=== PATIENT | female | born 1935 | race Caucasian/White ===

== ENCOUNTER 2016-04-27 11:07 | Day surgery (SDC) | payer MEDICARE, BC ==
[2016-11-12] MEDS ORDERED: NORVASC10 MG PO (18:38)
[2016-11-12] MEDS ORDERED: COZAAR100 MG PO (18:38)
[2016-11-12] MEDS ORDERED: PRAVACHOL40 MG PO (18:38)
[2016-11-12] MEDS ORDERED: HALFPRIN81 MG PO (18:39)
[2016-11-12] MEDS ORDERED: CERTAVITE SR-AN1 TAB PO (18:40)
[2016-11-12] MEDS ORDERED: VITAMIN C250 MG PO (18:40)
[2016-11-12] MEDS ORDERED: VITAMIN D31000 UNI1 PO (18:40)
[2016-11-12] MEDS ORDERED: AMBIEN10 MG PO (18:41)
== END 2016-04-27 14:50 | disposition short-term general hospital (02) ==
LOC: SURGOP 11:07
PROC: 08RK3JZ Replacement of Left Lens with Synthetic Substitute, Percutaneous Approach (ICD-10-PCS; principal; 2016-04-27)
DX: H26.9 Unspecified cataract (principal); I10 Essential (primary) hypertension; Z90.49 Acquired absence of other specified parts of digestive tract; Z79.82 Long term (current) use of aspirin; Z79.891 Long term (current) use of opiate analgesic; Z79.899 Other long term (current) drug therapy; E66.9 Obesity, unspecified; Z96.1 Presence of intraocular lens; Z68.41 Body mass index [BMI] 40.0-44.9, adult
CPT/HCPCS: J0171; J3473; J3490; V2630